=== PATIENT | male | born 2000 | race Caucasian/White ===

== ENCOUNTER 2024-06-24 13:00 | Outpatient (CLI) | payer BC, SELFPAY ==
--- NOTE | ~2024-06-24 | XR_ITS ---
AP and lateral views of the bilateral hips Clinical history: Pain Findings: Probable small avulsion fracture from the anterior inferior iliac spine.. Bilateral hip and SI joint spaces are preserved. Soft tissues are unremarkable. Impression: Probable small fracture at the right anterior, inferior iliac spine, which would represent avulsion f racture related to the origin of the rectus femoris muscle. Reviewed, dictated and finalized at [facility]. Impression: Probable small fracture at the right anterior, inferior iliac spine, which woul d represent avulsion fracture related to the origin of the rectus femoris jodie drummond.
== END 2024-06-24 13:01 | disposition home or self-care (01) ==
PROVIDERS: PCP Internal Medicine; Visit Provider Internal Medicine
DX: R10.31 Right lower quadrant pain (principal); S76.111A Strain of right quadriceps muscle, fascia and tendon, initial encounter; X58.XXXA Exposure to other specified factors, initial encounter
CPT/HCPCS: 73521